=== PATIENT | male | born 1980 | race Caucasian/White ===

== ENCOUNTER 2019-06-02 14:14 | Emergency (ER) | payer OTHER ==
[2019-06-02 14:23] VITALS: BP 151/76
--- NOTE | 2019-06-02 14:26 | ED Physician Documentation ---
PD HPI OPHTHO - Stated complaint Stated Complaint: R EYE PX - History obtained from History obtained from: Patient - History of Present Illness Timing - onset: How many days ago (2) Timing - duration: Days (2) Timing - details: Gradual onset, Still present (worsening) Location: Right Associated symptoms: Redness, Swelling (He developed initially some redness and swelling in the lower eyelid without any drainage per se. He then last night into today blossomed diffuse redness of the conjunctive a and woke with crusting and matting of the eye. Left eye is normal. He states he has a little bit of runny nose chronically but no purulent nasal drainage. He has normal vision except for mild blurriness with watering. No fevers.) Contributing factors: No: Recent URI, Wears glasses, Wears contacts Similar symptoms before: Diagnosis (He has had the same pattern of swelling and tenderness in a small lump in the eyelid with subsequent redness and then developing conjunctivitis. It did happen in the upper lid a few times over the past year. He was treated with antibiotic ointment and improved over 2 to 3 days. He has not had any problem on the left eye. He denies any chronic allergies.) Review of Systems Constitutional: denies: Fever, Chills Eyes: reports: Discharge, Irritation. denies: Loss of vision, Decreased vision, Photophobia Nose: denies: Rhinorrhea / runny nose, Congestion, Sinus pressure / pain Throat: denies: Sore throat PD PAST MEDICAL HISTORY - Past Medical History Cardiovascular: None Endocrine/Autoimmune: None HEENT: None - Present Medications Home Medications: Ambulatory Orders Medication Instructions Recorded Confirmed Ketorolac 0.45% Ophth Drops 2 drops OPTH QID 5 Days #1 bottle 06/02/19 [Acuvail] Sulfacetamide 10% Ophth Drops 2 drops OPTH Q3H 5 Days #1 bottle 06/02/19 [Sulfamide 10% Ophth Drops] - Allergies Allergies/Adverse Reactions: Allergies Allergy/AdvReac Type Severity Reaction Status Date / Time No Known Drug Allergies Allergy Verified 06/02/19 14:23 PD ED PE NORMAL - Vitals Vital signs reviewed: Yes - General General: Alert and oriented X 3, Well developed/nourished - HEENT HEENT: Ears normal, Moist mucous membranes, Pharynx benign - Neck Neck: Supple, no meningeal sign, No adenopathy PD ED PE EXPANDED - Eyes Eyes: PERRL, EOMI, Right eye, Eyelid swelling (lower lid on right, with small bump c/w stye), Injected conj/sclera, Exudate (minimal at lid margins), Anterior chambers clear, Normal fundi, Other (left eye normal). No: Corneal ulcer, Fluorescein uptake Results - Vitals Vitals: Vital Signs - 24 hr 06/02/19 14:20 Temperature 36.7 C Heart Rate 86 Respiratory 16 Rate Blood Pressure 151/76 H O2 Saturation 98 Oxygen O2 Source Room air PD MEDICAL DECISION MAKING - ED course Complexity details: considered differential, d/w patient Departure - Departure Disposition: Home, Self Care Clinical Impression: Hordeolum externum (stye) Qualifiers: Laterality: right Eyelid: lower Qualified Code(s): H00.012 - Hordeolum externum right lower eyelid Conjunctivitis Qualifiers: Conjunctivitis type: acute Acute conjunctivitis type: bacterial Laterality: right Qualified Code(s): H10.31 - Unspecified acute conjunctivitis, right eye Condition: Stable Record reviewed to determine appropriate education?: Yes Instructions: ED Conjunctivitis Bacterial Follow-Up: [facility] [Provider Group] Prescriptions: Ketorolac 0.45% Ophth Drops [Acuvail] 2 drops OPTH QID 5 Days #1 bottle Sulfacetamide 10% Ophth Drops [Sulfamide 10% Ophth Drops] 2 drops OPTH Q3H 5 Days #1 bottle Comments: Cleanse the eye with some water if it is crusty. Use the antibiotic and anti- inflammatory eyedrops as directed for the next 5 days. You should notice improvement over the next 1 to 2 days. Subsequently use some saline or refresh type eyedrops twice daily long-term to see if you do have less recurrence of the clogging of the glands and subsequent infections.
== END 2019-06-02 15:00 | disposition home or self-care (01) ==
LOC: ED 14:14
DX: H00.012 Hordeolum externum right lower eyelid (principal); H10.31 Unspecified acute conjunctivitis, right eye
CPT/HCPCS: 99282; 99283